=== PATIENT | female | born 1950 | race African-American/Black ===

== ENCOUNTER 2020-07-01 08:04 | Emergency (ER) | payer OTHER ==
[~2020-07-01] VITALS: Ht 167.6 cm; Wt 68.0 kg
[2020-07-01] MEDS ORDERED: ALBU18HF2 IH (08:09)
[2020-07-01] MEDS ORDERED: ACETAMINOPHEN 325MG TABLET PO STA (09:12)
[2020-07-01 10:04] LABS: BASOPHILS % 0.3 % (0.0-2.0); EOSINOPHILS % 0.1 % (0.0-5.0); HEMATOCRIT. 42.2 % (36.0-48.0); HEMOGLOBIN. 14.2 g/dL (12.0-16.0); LYMPHOCYTES % 7.8 % (20.0-50.0); MEAN CORPUSCULAR HEMOGLOBIN 29.7 pg (28.0-32.0); MEAN CORPUSCULAR VOLUME 88.2 fL (81.0-99.0); MEAN PLATELET VOLUME 7.1 fl (7.4-10.4); MONOCYTES % 4.3 % (2.0-8.0); NEUTROPHILS % 87.5 % (40.0-76.0); PLATELET 241 x1000/uL (130-400); RED BLOOD CELL COUNT 4.78 mill/uL (4.2-5.4); RED CELL DISTRIBUTION WIDTH 13.6 % (11.6-14.6)
[2020-07-01 10:14] LABS: CHLORIDE 102 mEq/L (98-107); PROTHROMBIN TIME 10.1 sec (9.6-11.0)
[2020-07-01] MEDS ORDERED: LEVOFLOXACIN 750MG PREMIX 150 ML IV ONE (10:15)
[2020-07-01 14:40] VITALS: BP 122/65
== END 2020-07-01 15:27 | disposition short-term general hospital (02) ==
LOC: ER 08:24 → EDBEDREQ 10:45 → EDBEDREQTM 10:45 → ER 15:27 → CANBEDREQ 15:54
DX: J18.9 Pneumonia, unspecified organism (principal); J45.909 Unspecified asthma, uncomplicated; I51.9 Heart disease, unspecified; Z91.040 Latex allergy status
CPT/HCPCS: 36415; 71045; 80053; 83605; 84145; 84484; 85025; 85610; 87040; 96365; 96366; 99285; J1956